=== PATIENT | female | born 1945 | race Caucasian/White ===

== ENCOUNTER → 2021-04-29 | Emergency (ER) | payer OTHER ==
[~2021-04-29] VITALS: Ht 162.6 cm; Wt 63.5 kg
[~2021-04-29] MED LIST: SYNTHROID150 MCG
== END | disposition home or self-care (01) ==
LOC: ER 20:01
DX: S70.01XA Contusion of right hip, initial encounter (principal); S70.11XA Contusion of right thigh, initial encounter; W18.09XA Striking against other object with subsequent fall, initial encounter; Y93.89 Activity, other specified; Y92.89 Other specified places as the place of occurrence of the external cause; Y99.8 Other external cause status